=== PATIENT | female | born 1965 | race African-American/Black ===

== ENCOUNTER 2025-02-15 20:31 | Emergency (ER) | payer OTHER ==
[~2025-02-15] VITALS: Ht 177.8 cm; Wt 105.0 kg
[2025-02-15 20:43] VITALS: O2SAT 100
[2025-02-15 22:29] LABS: BASOPHILS % 0.3 % (0.0-2.0); DIFFERENTIAL COMMENT 0; EOSINOPHILS % 2.4 % (0.0-5.0); HEMATOCRIT. 31.4 % (36.0-48.0); HEMOGLOBIN. 9.7 g/dL (12.0-16.0); LYMPHOCYTES % 20.1 % (20.0-50.0); MEAN CORPUSCULAR HEMOGLOBIN 22.7 pg (28.0-32.0); MEAN CORPUSCULAR VOLUME 73.2 fL (81.0-99.0); MEAN PLATELET VOLUME 8.5 fl (7.4-10.4); MONOCYTES % 6.4 % (2.0-8.0); NEUTROPHILS % 70.8 % (40.0-76.0); PLATELET 361 x1000/uL (130-400); RED BLOOD CELL COUNT 4.28 mill/uL (4.2-5.4); RED CELL DISTRIBUTION WIDTH 17.5 % (11.6-14.6); WHITE BLOOD COUNT 7.5 x1000/uL (4.5-11.0)
[2025-02-15 22:39] LABS: CHLORIDE 107 mEq/L (98-107); POTASSIUM 3.6 mEq/L (3.5-5.1); SODIUM 145 mEq/L (136-145)
[2025-02-15 22:40] LABS: CARBON DIOXIDE 28 mEq/L (21-32)
[2025-02-15 22:45] LABS: CREATININE 0.6 mg/dL (0.6-1.0); GLUCOSE 92 mg/dL (70-105); UREA NITROGEN BLOOD 6 mg/dL (9-23)
[2025-02-15 22:47] LABS: TROPONIN I HIGH SENSITIVITY < 4 ng/L (3.0-34)
[2025-02-15] MEDS: MORPHINE SULFATE 4 MG/ML INJ (FOR IV/IM USE) IV STA (22:47)
[2025-02-15] MEDS: ONDANSETRON HCL 4MG/2ML INJ IV STA (22:48)
[2025-02-16 00:26] VITALS: TEMP 36.9
[2025-02-16] MEDS: IOHEXOL-350 100 ML BOTTLE ONE (01:48)
[2025-02-16 03:26] VITALS: BP 161/91; PULSE 75; RESP 21; O2SAT 98
== END 2025-02-16 04:00 | disposition short-term general hospital (02) ==
LOC: ER 20:31
DX: R07.89 Other chest pain (principal); M25.461 Effusion, right knee; I10 Essential (primary) hypertension; Z86.711 Personal history of pulmonary embolism
CPT/HCPCS: 80048; 85025; 84484; 36415; 71045; 73560; 71275; 93970; 93005; 96374; 96375; 99285; J2405; J2270; Z7610; Q9967; A4606